=== PATIENT | male | born 2000 | race Two or more races ===

== ENCOUNTER 2023-11-20 14:41 | Emergency (ER) | payer MEDICAID, OTHER ==
[~2023-11-20] VITALS: Ht 170.2 cm; Wt 68.1 kg
[2023-11-20] MEDS: LIDOCAINE 2%HCL (LOCAL ANESTH.) INJ 20ML MDV ID ONE (17:00)
[2023-11-20] MEDS: NEOMYCIN-BACITRACIN-POLYM UNITDOSE PKG TOP OINT TOP ONE (17:00)
[2023-11-20] MEDS: cefTRIAXone 1GM/50ML D5W 50 ML IV ONE (17:03)
[2023-11-20] MEDS: TETANUS-DIPTH-ACEL PERTUSSIS 0.5ML SYR Tdap IM ONE (17:03)
[2023-11-20] MEDS: SODIUM CHLORIDE 0.9% 1,000 ML IV ONE (17:22)
[2023-11-20 17:33] LABS: Basophils # (auto) 0.1 10 ^3/uL (0-0.2); Basophils % (auto) 0.4 % (0.0-2.0); Eosinophils # (auto) 0 10 ^3/uL (0-0.8); Eosinophils % (auto) 0.3 % (0.0-7.0); Hematocrit 39.4 % (41.0-53.0); Hemoglobin 13.6 g/dL (13.5-17.5); Lymphocytes # (auto) 1.8 10 ^3/uL (0.4-5.4); Lymphocytes % (auto) 12.7 % (10.0-50.0); Mean Corpuscular Hemoglobin 31.9 pg (28.0-32.0); Mean Corpuscular Hgb Conc. 34.5 g/dL (32.0-36.0); Mean Corpuscular Volume 92.6 fL (80.0-100.0); Monocytes # (auto) 0.9 10 ^3/uL (0-1.3); Monocytes % (auto) 6.3 % (0.0-12.0); Neutrophils # (auto) 11.4 10 ^3/uL (1.6-8.6); Neutrophils % (auto) 80.3 % (37.0-80.0); Nucleated Red Blood Cells % 0.1 %; Red Blood Cells 4.25 10^6/uL (4.5-5.90); Red Cell Distribution Width 13.7 % (11.8-14.3); White Blood Cell 14.2 10^3/uL (4.4-10.8)
[2023-11-20 17:44] LABS: Alanine Aminotransferase 24 U/L (7-40); Albumin 4.1 g/dL (3.2-4.8); Alkaline Phosphatase 59 U/L (46-116); Anion Gap 7 (5-15); Aspartate Aminotransferase 22 U/L (13-40); BUN/Creatinine Ratio 13.6 (10.0-20.0); Blood Urea Nitrogen 15 mg/dL (9-23); Calcium 9.2 mg/dL (8.7-10.4); Carbon Dioxide 25 mmol/L (20-30); Chloride 109 mmol/L (98-107); Glucose 107 mg/dL (74-106); Magnesium 2.1 mg/dL (1.6-2.6); Potassium 3.8 mmol/L (3.5-5.1); Sodium 141 mmol/L (136-145)
[2023-11-20 17:45] LABS: Bilirubin, Total 0.7 mg/dL (0.2-1.0); Total Protein 6.3 g/dL (5.7-8.2)
[2023-11-20 17:51] LABS: INR 0.98 (0.9-1.15); Partial Thromboplastin Time 22.8 SEC (24.5-34.5); Prothrombin Time 10.4 sec (9.3-11.8)
[2023-11-20] MEDS: IOHEXOL 300 MG/ML 100ML BOTTLE IJ ONE (18:11)
[2023-11-20] MEDS: HYDROmorphone HCL 2 MG/ML VL/or syr IV ONE (18:36)
[2023-11-20] MEDS: ONDANSETRON HCL 4 MG/2 ML VIAL IV ONE (20:46)
[2023-11-20] MEDS ORDERED: HYDR-4902 PO (21:16)
[2023-11-20] MEDS ORDERED: CEFD300C2 PO (21:16)
[2023-11-20] MEDS ORDERED: DICL50TA2 PO (21:16)
[2023-11-20 21:25] VITALS: BP 112/57; PULSE 67; RESP 24; O2SAT 96
== END 2023-11-20 21:54 | disposition home or self-care (01) ==
LOC: EDBD 14:41 → ER 14:41
DX: S01.412A Laceration without foreign body of left cheek and temporomandibular area, initial encounter (principal); S01.81XA Laceration without foreign body of other part of head, initial encounter; Y04.0XXA Assault by unarmed brawl or fight, initial encounter; Y93.89 Activity, other specified; Y92.89 Other specified places as the place of occurrence of the external cause; Y99.8 Other external cause status
CPT/HCPCS: 12054; 36415; 70487; 71046; 80053; 83735; 85025; 85610; 85730; 90471; 90715; 93005; 96365; 96375; 99285; J0696; J1170; J2405; J7030; Q9967

== ENCOUNTER 2023-11-28 06:09 | Emergency (ER) | payer MEDICAID ==
[~2023-11-28] VITALS: Ht 170.2 cm; Wt 80.2 kg
[~2023-11-28 06:09] MED LIST: CEFD300C2 PO; DICL50TA2 PO; HYDR-4902 PO
[2023-11-28] MEDS: NEOMYCIN-BACITRACIN-POLYM UNITDOSE PKG TOP OINT TOP ONE (07:42)
[2023-11-28 07:52] VITALS: BP 117/72; PULSE 52; RESP 19; TEMP 98; O2SAT 97
== END 2023-11-28 08:14 | disposition home or self-care (01) ==
LOC: ER 06:09
DX: S01.81XD Laceration without foreign body of other part of head, subsequent encounter (principal); Z48.02 Encounter for removal of sutures; X58.XXXD Exposure to other specified factors, subsequent encounter

== ENCOUNTER 2023-12-04 14:22 | Emergency (ER) | payer MEDICAID ==
[~2023-12-04] VITALS: Ht 170.2 cm; Wt 78.8 kg
[2023-12-04] MEDS: SULFAMETHOX W/TRIMETH(800/160MG) DS TAB PO ONE (15:53)
[2023-12-04] MEDS: HYDROcodone-ACET 10/325MG TAB PO ONE (15:53)
[2023-12-04 15:58] LABS: Basophils # (auto) 0 10 ^3/uL (0-0.2); Basophils % (auto) 0.5 % (0.0-2.0); Eosinophils # (auto) 0.1 10 ^3/uL (0-0.8); Hematocrit 38.6 % (41.0-53.0); Hemoglobin 13.5 g/dL (13.5-17.5); Lymphocytes # (auto) 2.3 10 ^3/uL (0.4-5.4); Lymphocytes % (auto) 26.8 % (10.0-50.0); Mean Corpuscular Hemoglobin 32.2 pg (28.0-32.0); Mean Corpuscular Volume 92.1 fL (80.0-100.0); Monocytes # (auto) 0.7 10 ^3/uL (0-1.3); Monocytes % (auto) 7.6 % (0.0-12.0); Neutrophils # (auto) 5.6 10 ^3/uL (1.6-8.6); Neutrophils % (auto) 64.1 % (37.0-80.0); Nucleated Red Blood Cells % 0.1 %; Red Blood Cells 4.19 10^6/uL (4.5-5.90); Red Cell Distribution Width 13.5 % (11.8-14.3); White Blood Cell 8.7 10^3/uL (4.4-10.8)
[2023-12-04 16:03] LABS: Chloride 107 mmol/L (98-107); Potassium 3.9 mmol/L (3.5-5.1); Sodium 140 mmol/L (136-145)
[2023-12-04 16:04] LABS: Anion Gap 7 (5-15); Calcium 9.3 mg/dL (8.7-10.4); Carbon Dioxide 26 mmol/L (20-30)
[2023-12-04 16:09] LABS: BUN/Creatinine Ratio 12.5 (10.0-20.0); Blood Urea Nitrogen 13 mg/dL (9-23); Glucose 90 mg/dL (74-106)
[2023-12-04] MEDS ORDERED: BACDST PO (16:20)
[2023-12-04] MEDS ORDERED: ACE3T PO (16:20)
[2023-12-04] MEDS ORDERED: IBUP-1455 PO (16:20)
[2023-12-04 17:21] VITALS: BP 112/50; PULSE 59; RESP 14; TEMP 97.9; O2SAT 96
== END 2023-12-04 17:23 | disposition home or self-care (01) ==
LOC: ER 14:31
DX: L02.01 Cutaneous abscess of face (principal); Z79.899 Other long term (current) drug therapy
CPT/HCPCS: 10060; 36415; 80048; 85025; 87205

== ENCOUNTER 2023-12-05 15:41 | Emergency (ER) | payer MEDICAID ==
[~2023-12-05] VITALS: Ht 170.2 cm; Wt 82.0 kg
[~2023-12-05 15:41] MED LIST changes: +ACE3T PO; +BACDST PO; +IBUP-1455 PO
[2023-12-05 16:36] VITALS: BP 105/50; PULSE 60; RESP 12; TEMP 99; O2SAT 96
== END 2023-12-05 16:49 | disposition home or self-care (01) ==
LOC: ER 15:49
DX: L02.01 Cutaneous abscess of face (principal)